=== PATIENT | male | born 1975 | race African-American/Black ===

== ENCOUNTER 2024-04-14 06:35 | Inpatient (IN) | payer OTHER, SELFPAY ==
[2024-04-14] VITALS (36 sets, daily range): BP systolic 130–205; BP diastolic 80–107; PULSE 56–92; RESP 12–32; TEMP 36.2–36.6; O2SAT 90–100; BMI 35.3
[2024-04-14] MEDS: fentaNYL 100 MCG/2 ML INJ 75 MCG IV (06:40)
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
--- NOTE | 2024-04-14 06:47 | PC.NURSE ---
Dr Carlson surgeon arrived
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
[2024-04-14] MEDS: TET,DIPH,PERTUSS(ACELL),VAC/PF 0.5 ML SYRINGE IM (06:57)
[2024-04-14 06:59] LABS: Add Manual Diff / Slide Review NO; Basophils Absolute Auto 0 /uL (0-100); Basophils Percent Auto 0.5 % (0-2); Eosinophils Absolute Auto 100 /uL (0-450); Eosinophils Percent Auto 1.2 % (2-4); Hematocrit 44.2 % (41-53); Hemoglobin 15.1 g/dL (13.5-17.5); Lymphocytes Absolute Auto 3000 /uL (1100-4500); Lymphocytes Percent Auto 51.1 % (25-40); Mean Corpuscular HGB Conc 34.1 % (30-36); Mean Corpuscular Hemoglobin 31.3 PG (26-34); Mean Corpuscular Volume 91.7 fL (80-100); Monocytes Absolute Auto 500 /uL (0-900); Monocytes Percent Auto 7.9 % (3-14); Neutrophils Absolute Auto 2300 /uL (1500-7000); Neutrophils Percent Auto 39.3 % (50-75); Platelet Count 214 X10^3/uL (150-400); Red Blood Cell Count 4.82 X10^6/uL (4.5-5.9); Red Cell Distribution Width 14.2 % (11.6-14.8); White Blood Cell Count 5.8 X10^3/uL (4.5-11.0)
[2024-04-14] MEDS: CEFAZOLIN VIAL 1 GM in SODIUM CHLORIDE 0.9% 100 ML IV ×2 (06:59→08:24)
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
[2024-04-14 07:06] LABS: INR 1.1 (0.9-1.3); Prothrombin Time 12.3 SECONDS (9.4-12.5)
[2024-04-14] MEDS: SODIUM CHLORIDE 0.9% 1,000 ML 1000 ML IV (07:10)
[2024-04-14 07:11] LABS: Alanine Aminotransferase 35 IU/L (<50); Albumin 4.6 g/dL (3.5-5.0); Albumin Globulin Ratio 1.5 (1.0-2.8); Alkaline Phosphatase 45 U/L (38-126); Aspartate Aminotransferase 41 IU/L (17-59); BUN Creatinine Ratio 12.5 (6-22); Blood Urea Nitrogen 17 mg/dL (9-20); Calcium 8.7 mg/dL (8.4-10.2); Carbon Dioxide 22 mmol/L (22-32); Chloride 105 mmol/L (98-107); Creatine Kinase 288 U/L (55-170); Estimated Glomerular Filt Rate > 60 mL/min (>60); Ethanol (ETOH) < 10 mg/dL; Globulin 3.1 g/dL (1.7-4.1); Glucose 128 mg/dL (70-100); Lactate (Lactic Acid) 2.3 mmol/L (0.7-2.1); Potassium 3.3 mmol/L (3.4-5.1); Sodium 139 mmol/L (137-145); Total Protein 7.7 g/dL (6.3-8.2)
[2024-04-14 07:12] LABS: HEMOLYSIS 63 (0-50)
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
[2024-04-14 07:22] LABS: Troponin I < 0.012 ng/mL (0.01-0.034)
--- NOTE | 2024-04-14 07:33 | PC.NURSE ---
pt resting quietly waiting for transport to surgery, states pain is coming back but does not want any medication at this time, procedure of care explained to pt
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
[2024-04-14 08:00] LABS: Ur Creatinine Normal (Normal); Ur Specific Gravity Normal (Normal); Urine pH Normal (Normal)
[2024-04-14] MEDS: LACTATED RINGERS 1,000 ML 42 ML IV ×2 (08:00→09:05)
[2024-04-14 08:01] LABS: Urine Amphetamines Negative (Negative); Urine Barbiturates Negative (Negative); Urine Benzodiazepines Negative (Negative); Urine Cocaine Negative (Negative); Urine MDMA Negative (Negative); Urine Methadone Negative (Negative); Urine Methamphetamines Negative (Negative); Urine Opiates Negative (Negative); Urine Oxycodone Negative (Negative); Urine Phencyclidine Negative (Negative); Urine THC Negative (Negative); Urine Tricyclic Antidepressant Negative (Negative)
[2024-04-14 08:06] LABS: Bacteria Urine None Seen; Culture Indicated Urine Cult Not Indicated; RBC Urine None Seen (0-5/HPF); Squamous Epithelial Cell Urine None Seen (0-5/HPF); Urine Volume 10mL (spun); WBC Urine None Seen (0-5/HPF)
[2024-04-14 08:28] LABS: Reflexed Lactate in 2 Hours Y
--- NOTE | 2024-04-14 08:32 | SUR.OPER ---
Supine on padded OR bed, head on pillow, arms secured on padded arm boards at <90 degrees abduction, legs uncrossed, safety belt at thigh, tape over blanket over lower legs.
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
[2024-04-14] MEDS: HYDROMORPHONE 1 MG INJ IV ×2 (09:35→09:40)
[2024-04-14] MEDS: ACETAMINOPHEN IV 1,000 MG/100 ML VIAL 400 MG IV (09:51)
[2024-04-14 09:58] LABS: Lactate 2HR (Lactic Acid Rflx) 1.5 mmol/L (0.7-2.1)
[2024-04-14] MEDS: OXYCODONE IR 5 MG TABLET PO (10:08)
--- NOTE | 2024-04-14 10:24 | SUR.PHASEI ---
Next of kin aunt Jasmina [phone]; cell [phone] uncle Favio Gallegos [phone] Cousin Salamanca sivakumar Webb
[2024-04-14] MEDS: SODIUM CHLORIDE 0.9% 1,000 ML 100 ML IV (10:57)
[2024-04-14] MEDS: HYDROMORPHONE 0.5 MG INJ 1 MG IV (11:53)
[2024-04-14] MEDS: POTASSIUM CHLORIDE 20 MEQ TAB 40 MEQ PO ×2 (13:58→20:21)
[2024-04-14] MEDS: OXYCODONE IR 10 MG TABLET PO ×3 (13:58→22:32)
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
[2024-04-15] VITALS (8 sets, daily range): BP systolic 135–153; BP diastolic 84–95; PULSE 55–61; RESP 16–20; TEMP 36.4–37.1; O2SAT 93–100
[2024-04-15] MEDS: SODIUM CHLORIDE 0.9% 1,000 ML 100 ML IV (00:47)
[2024-04-15] MEDS: HYDROMORPHONE 0.5 MG INJ 1 MG IV (00:47)
--- NOTE | 2024-04-15 05:13 | PC.NURSE ---
Pt was able to walk in the huynh x2 with SBA. Reported pain in abdomen, given PO oxycodone and IV dilaudid to manage. Encouraged to use the IS. Right flank dressing reinforced, shadowing in all dressings.
[2024-04-15] MEDS: OXYCODONE IR 10 MG TABLET PO ×3 (06:02→15:52)
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
[2024-04-15] MEDS: IBUPROFEN 600 MG TABLET PO (15:55)
== END 2024-04-15 16:00 | disposition home or self-care (01) | DRG 364 ==
LOC: ED 06:49 → AC 06:56
PROVIDERS: Admitting Provider Surgery; Emergency Provider Emergency Medicine; Referring Provider Emergency Medicine; Visit Provider Surgery
PROC: 0WJG0ZZ Inspection of Peritoneal Cavity, Open Approach (ICD-10-PCS; CPT 49000; principal; 2024-04-14 07:45)
DX: S31.140A Puncture wound of abdominal wall with foreign body, right upper quadrant without penetration into peritoneal cavity, initial encounter (principal); S22.31XA Fracture of one rib, right side, initial encounter for closed fracture; W34.00XA Accidental discharge from unspecified firearms or gun, initial encounter; Z23 Encounter for immunization
CPT/HCPCS: 36415; 49000; 71045; 71260; 72170; 74177; 80053; 80305; 80320; 81015; 82550; 83605; 84484; 85025; 85610; 86850; 86900; 86901; 90471; 96365; 96375; 97162; 97166; 97530; 97535; 99222; 99285; 99291; 90715; G0390; J0134; J0330; J0690; J1170; J2250; J2405; J2704; J3010; J3490; Q9967